=== PATIENT | female | born 1980 | race Caucasian/White ===

== ENCOUNTER → 2017-04-25 | Outpatient (CLI) | payer BC ==
--- NOTE | 2017-04-28 18:13 | PCVCIMAG ---
APPROVED REPORT Exam: Stress Echocardiogram Indication: chest pressure,bradycardia Patient Location: Echo lab Stress Nurse: Isabelle Styles RN Status: routine HR: 77 bpm Rhythm: NSR Medical History Medical History: Hyperlipidemia Previous Cardiac Procedures: none Pretest Chest Pain Characteristics: No chest pain Exercise History: Physically active Procedure The patient underwent an Exercise Stress Test using the Sabino Protocol. Blood pressure, heart rate, and EKG were monitored. An Echocardiogram was performed by product support technician in four stages in quad fashion. At peak stress, four selected images were obtained and placed side by side with resting images for comparison. Stress Test Details Stress Test: Exercise stress testing was performed using a Sabino protocol. HR Resting HR: 77 bpmMax Heart Rate (APMHR): 184 bpm Max HR Achieved: 187 bpmTarget HR (85% APMHR): 156 bpm % of APMHR: 101 Recovery HR: 100 bpm HR response to stress: Normal HR response to stress BP Resting BP: 116/84 mmHg Max BP: 156/80 mmHg Recovery BP: 142/80 mmHg ECG Resting ECG: Sinus Rhythm Stress ECG: Sinus Rhythm, normal EKG ST Change: Non-ischemic, Upsloping ST depression Maximum ST Deviation: 1.4 mm Arrhythmia: None Recovery ECG: Sinus Rhythm Recovery ST Change: Normal Recovery Arrhythmia: None Clinical Reason for Termination: Maximal effort Stress Symptoms: none Exercise duration: 12 min sec Highest Stage Achieved: Stage 4: 4.2 mph at 16% grade. Exercise capacity: 13.4 METs Overall Exercise Capacity for Age: Good Scale: Active Angina Score: None Stress ECG Conclusion 1. Low risk study Colon Treadmill Score is 5.0 which is Low risk. Pre-Stress Echo The resting Echocardiogram showed normal left ventricular contractility with an estimated Ejection Fraction of about 55-60%. Normal wall motion in all segments on baseline images. Post-Stress Echo The stress Echocardiogram showed normal left ventricular contractility with an estimated Ejection Fraction of about 65-70%. Normal augmentation of wall motion in all segments on post stress images. Clinical No clinical or ECG evidence for ischemia. Conclusion Clinical Response: Non-ischemic Exercise Capacity: Superior Stress ECG Response: Non-ischemic Stress Echo Images: Non-ischemic No clinical, EKG or echocardiographic evidence for ischemia. Normal stress echocardiogram with maximal exercise stress. No prior study available for comparison. Other Information Study Quality: Good <Conclusion> No clinical, EKG or echocardiographic evidence for ischemia. Normal stress echocardiogram with maximal exercise stress.
== END | disposition home or self-care (01) ==
LOC: PCVCIMAG 14:58
PROVIDERS: ATTEND Internal Medicine
DX: E78.5 Hyperlipidemia, unspecified (principal); E78.00 Pure hypercholesterolemia, unspecified
CPT/HCPCS: 93325; 93351